=== PATIENT | female | born 1955 | race Caucasian/White ===

== ENCOUNTER 2020-08-16 16:41 | Emergency (ER) | payer OTHER ==
[~2020-08-16 16:41] MED LIST: BENICAR HCT 401 EAC1 PO; K-DUR TAB 20 M20 MEQ PO; NAPROSYN500 MG PO; NORCO 7.5-3251 EACH PO; TYLENOL PM EX-1 EACH PO; ULORIC 40 MG TA40 MG PO; ZANTAC300 MG PO
== END 2020-08-16 18:03 | disposition left against medical advice (07) ==
LOC: ER1 16:41
DX: Z53.21 Procedure and treatment not carried out due to patient leaving prior to being seen by health care provider (principal)